=== PATIENT | female | born 1980 | race Caucasian/White ===

== ENCOUNTER 2016-07-08 18:50 | Inpatient (IN) | payer BC ==
--- NOTE | 2016-07-09 14:51 | NUR ---
1405 REPORT GIVEN TO JOHNATHAN DAVEY RN OR AT [facility] FOR PATIENT TO TRANSFER TO THEIR FACILITY TODAY VIA PRIVATE VEHICLE. 1420 PATIENT TRANSPORTED TO VEHICLE THAT WILL BE DRIVEN BY HER MOTHER TO TRANSPORT HER TO [facility] AT THIS TIME FOR OR PROCEDURE. SALINE LOCK IV LEFT IN LAC PER MD ORDER. PATIENT WAS STABLE AT TIME OF DC.
== END 2016-07-09 14:20 | disposition short-term general hospital (02) | DRG 395 ==
LOC: ER 18:50 → MED 22:48
PROVIDERS: ADMIT Internal Medicine
DX: K46.0 Unspecified abdominal hernia with obstruction, without gangrene (principal); N83.202 Unspecified ovarian cyst, left side; N83.201 Unspecified ovarian cyst, right side; Z98.84 Bariatric surgery status; Z98.890 Other specified postprocedural states; F90.9 Attention-deficit hyperactivity disorder, unspecified type; Z79.3 Long term (current) use of hormonal contraceptives; Z79.899 Other long term (current) drug therapy; Z80.8 Family history of malignant neoplasm of other organs or systems; R10.13 Epigastric pain; R11.0 Nausea
CPT/HCPCS: 36415; 74020; J2550; Q9967

== ENCOUNTER 2016-07-08 18:50 | Emergency (ER) | payer BC | END 2016-07-08 22:48 | disposition critical access hospital (66) | LOC: ER 18:50 | DX: K46.9 Unspecified abdominal hernia without obstruction or gangrene (principal); Z90.89 Acquired absence of other organs; Z79.899 Other long term (current) drug therapy | CPT/HCPCS: 36415; 96361; 96374; 96375; 96376; J2550; Q9967 ==